=== PATIENT | male | born 1970 | race Caucasian/White ===

== ENCOUNTER 2025-07-13 19:29 | Emergency (ER) | payer OTHER, SELFPAY ==
[2025-07-13 19:40] VITALS: BP 146/86
[2025-07-13 20:03] LABS: Hematocrit 45.1 % (39.0-52.0); Hemoglobin 15.9 g/dL (13.0-18.0); Mean Corp Hgb Conc. 35.3 g/dL (33.0-37.0); Mean Corpuscular Volume 94.4 fL (80.0-94.0); Nucleated Red Blood Cells % 0 % (-); Platelet Count 306 10^3/uL (130-400); Red Cell Dist. Width 12.4 % (11.5-14.5)
[2025-07-13 20:23] LABS: ALT (SGPT) 42 U/L (0-50); AST (SGOT) 34 U/L (17-59); Albumin 4.6 g/dl (3.5-5.0); Alkaline Phosphatase 63 U/L (38-126); Blood Urea Nitrogen 33 mg/dl (9-20); Calcium 9.5 mg/dl (8.4-10.2); Carbon Dioxide 29 mmol/L (22-30); Chloride 103 mmol/L (98-107); Glucose 119 mg/dl (70-99); Potassium 4.4 mmol/L (3.5-5.1); Sodium 139 mmol/L (135-145); Total Protein 7.2 g/dl (6.3-8.2); eGFR > 60.00
[2025-07-13 22:51] LABS: Troponin I < 0.012 ng/ml
[2025-07-14 00:21] VITALS: BMI 28.8
[2025-07-14 00:23] VITALS: BP 130/86
[2025-07-14 01:00] VITALS: BP 131/73
--- NOTE | 2025-07-14 02:18 | ED.GENMED ---
History of Present Illness
General
Chief Complaint: Chest Pain
Source: patient and family
Time Seen by Provider: 07/14/25 00:17
Nursing documentation reviewed up to this point in time: agreed with
History of Present Illness
History of Present Illness:
Note:
CHIEF COMPLAINT(S)
Rapid heart rate and chest pain.
HISTORY OF PRESENT ILLNESS
The patient is a 55-year-old male presenting with a rapid heart rate and associated chest pain. The symptoms began approximately two hours prior to the visit. The patient reports experiencing a similar episode during the summer, attributing it to
excessive caffeine consumption. He denies the use of any medications, including blood thinners, and has not previously seen a athletic team physician. The patient has an upcoming appointment with Dr. Andujar scheduled for September 01. During todays visit, the
patient was found to be slightly dehydrated after spending significant time outdoors. An initial electrocardiogram was performed on-site, revealing irregular heart rhythms. Concerns regarding potential atrial fibrillation were noted by the attending
physician. The patient is normally in good health with no reported chronic conditions.
PHYSICAL EXAM
General: Alert, no acute distress.
Skin: Warm, dry.
Head: Normocephalic, atraumatic.
Neck: Supple, trachea midline.
Eyes, Ears, Nose, Mouth, and Throat: Oral mucosa moist.
Cardiovascular: Notable irregular heartbeat.
Respiratory: Respirations are non-labored.
Gastrointestinal: Abdomen nondistended.
Back: Normal range of motion, normal alignment.
Musculoskeletal: Normal range of motion, normal strength.
Neurological: Alert and oriented to person, place, time, and situation, no focal neurological deficit observed.
Psychiatric: Cooperative, appropriate mood and affect.
PLAN
1. Monitor heart rate and rhythm closely; reassess electrocardiogram findings.
2. Encourage adequate hydration to address any dehydration.
3. Referral to cardiology expedited for potential evaluation of suspected arrhythmias, possibly due to atrial fibrillation.
4. Review electrolytes and other labs as deemed necessary for further assessment.
5. Advise patient to reduce caffeine consumption due to potential exacerbation of symptoms.
DIFFERENTIAL DIAGNOSIS
The Differential Diagnosis includes, in no particular order and is not limited to:
1. Atrial fibrillation.
2. Supraventricular tachycardia.
3. Anxiety-induced palpitations.
4. Caffeine-induced cardiac arrhythmias.
5. Electrolyte imbalances.
6. Myocardial ischemia.
7. Hyperthyroidism.
8. Dehydration-related palpitations.
9. Ventricular tachycardia.
10. Paroxysmal supraventricular tachycardia.
EKG
My independent EKG interpretation is:
- Time of EKG:
- Rhythm: Sinus rhythm
- Heart Rate: 105 bpm
- Abnormalities Observed: Possibility of atrial fibrillation with rapid ventricular response versus sinus rhythm with PACs
- Comparison with previous EKGs: No old EKG available for comparison
Disposition:
SUMMARY OF ENCOUNTER
The patient, a 55-year-old male, presented with palpitations and dehydration. He was able to drink liquids without issue and was encouraged to maintain hydration. The patients condition improved during the visit, and he is scheduled for a follow-up
appointment with Dr. Andujar in the near future. A referral for chest pain follow-up was also arranged.
DISPOSITION
Discharge.
PLAN
1. Continue to hydrate to address dehydration.
2. Follow up with Dr. Andujar as previously scheduled.
3. Arrange for chest pain follow-up.
MEDICAL DECISION MAKING
1. Number and Complexity of Problems Addressed:
Chronic conditions affecting care: None reported.
Differential Diagnosis list includes:
- Atrial fibrillation
- Supraventricular tachycardia
- Anxiety-induced palpitations
- Caffeine-induced cardiac arrhythmias
- Electrolyte imbalances
- Myocardial ischemia
- Hyperthyroidism
- Dehydration-related palpitations
- Ventricular tachycardia
- Paroxysmal supraventricular tachycardia
2. Data:
Category 1
My independent interpretation of EKG: Sinus rhythm with a heart rate of 105 bpm, with the possibility of atrial fibrillation with rapid ventricular response noted.
3. Risk:
Consideration of Admission/Observation: Escalation of care including admission/observation was considered given the complexity and risk of the patients presenting complaint, exam findings, and/or their underlying comorbidities. However, ultimately I
feel the patient is safe for outpatient management with close follow up. Reasoning: Work-up reassuring, does not reveal any acute life/organ threatening processes, patients symptoms well controlled upon reevaluation, reexamination is reassuring,
vitals are stable, patient agreeable with discharge, reliable for follow-up.
DIAGNOSIS
- Palpitations, unspecified (ICD-10: R00.2)
- Dehydration (ICD-10: E86.0)
Past History
Past History
ED Past Medical History: None
Social History
Living: with family
Employment: Employed
Phy Exam
General Physical Exam
General Presentation: well appearing and no apparent distress
General Skin: warm and dry
General Habitus: normal
General Mental: alert
General Hydration: appears well hydrated
ENT Exam
ENT Exam: EOMI, pharynx normal, neck supple and normocephalic
Eye Exam
Eye Exam: PERRL, cornea clear and conjunctiva normal
Cardiovascular Exam
Cardiovascular Exam: regular rate/rhythm, no edema, no murmur and normal peripheral pulses
Pulmonary Exam
Pulmonary Exam: lungs clear, no respiratory distress, no rales, no crackles, no rhonchi, no stridor, no wheezing and no cough
Gastrointestinal Exam
Gastrointestinal Exam: normal bowel sounds, non tender, soft, no organomegaly, no pulsatile mass and non distended
Neurological Exam
Neurological Exam: alert, oriented x3, no motor deficits and speech normal
Musculoskeletal Exam
Musculoskeletal Exam: full ROM and no edema
Skin Exam
Skin Exam: normal color, warm/dry, no rash and no petechia
Psychiatric Exam
Psychiatric Exam: normal mood/affect
Scores
Heart Score for Chest Pain Patients
STEMI patient?: No
History: Slightly or Non-Suspicious
ECG: Normal
Age: >45 - <65 years
Risk Factors: No Risk Factors
Troponin: </= Normal Limit
Heart Score for Chest Pain Patients: 1
Heart Score Risk: 2.5% MACE over next 6 weeks
Course
Orders/Labs/Results
Orders:
Orders
07/13/25 19:30
Electrocardiogram (*1) Urgent
Reason for Study: Chest Pain
EKG- Treatment ONCE
07/13/25 19:51
Complete Blood Count/With Diff Urgent
Comprehensive Metabolic Panel Urgent
07/13/25 22:18
Troponin I Urgent
07/14/25 01:27
0.9% Sodium Chloride 1000 ml [Nss] 1,000 ml IV BOLUS
Abnormal Lab Results
07/13/25
19:51
WBC 11.9 H 10^3/uL
(4.8-10.8)
MCV 94.4 H fL
(80.0-94.0)
MCH 33.3 H pg
(27.0-31.0)
Abs Immat Gran (auto) 0.1 H 10^3/uL
(0-0.05)
Absolute Lymphs (auto) 4.6 H 10^3/uL
(1.2-3.4)
Absolute Monos (auto) 1.0 H 10^3/uL
(0.1-0.6)
Immature Gran % 0.9 H %
(0-0.5)
BUN 33 H mg/dl
(9-20)
Glucose 119 H mg/dl
(70-99)
07/13/25 19:51
07/13/25 19:51
Vital Signs
Initial and Last Documented VS:
Initial Vital Signs
Temp Pulse Resp BP Pulse Ox
98.5 F 74 16 146/86 98
07/13/25 19:40 07/13/25 19:40 07/13/25 19:40 07/13/25 19:40 07/13/25 19:40
Last Documented Vital Signs
Temp Pulse Resp BP Pulse Ox
98.5 F 62 16 130/86 97
07/13/25 19:40 07/14/25 00:23 07/14/25 00:23 07/14/25 00:23 07/14/25 00:23
*Pulse Oximetry
SaO2: 97
Oxygen Mode of Delivery: Room air
Patient hypoxic: not evaluated
*Critical Care Note
Total Time (30-74mins, 75-104mins- exclusive of procedures): Not Applicable
ED Attending Note
-
Portions of this chart may have been created with voice recognition software.� Occasional wrong word or��sound alike� substitutions may have occurred due to the inherent limitations of voice recognition software.
Discharge Plan
Departure
Patient Disposition: Home (Routine Discharge)
Date of Disposition: 07/14/25
Time of Disposition: 02:21
Patient with high blood pressure during this ER visit?: No
Discharge Problem:
Chest pain, Palpitations
Instructions: Chest Pain CBC Follow Up
Prescriptions:
No Action
amoxicillin 500 MG capsule
500 mg PO TID Qty: 21 0RF
[id number] 10 ML drops,suspension
3 drp LEFT EAR TID Qty: 1 0RF
Rx Instructions:
Instil 3 drops in affected ear 3 times daily x 7 days
Referrals:
Dipak Andujar DO [Active, Cardiology]
Alka Roberts MD [Family Provider]
Activity Restrictions/Additional Instructions:
Thank You for choosing [facility].
It was a pleasure meeting you and taking part in your care. We hope for your continued healing and wellness.
Please read discharge instructions in their entirety. However, they are for general education and may not describe your exact diagnosis at discharge. Information on your ER visit and medical conditions were discussed with you along with appropriate
follow up information...
If indicated, please take your medications as instructed and indicated on discharge paperwork.
Please schedule a follow up appointment as directed. Call to schedule an appointment
Please return to the emergency department with ANY change in, persisting, or worsening of symptoms. If any of your symptoms do not improve, or persist, or become more severe within 6-12 hours, please return to the emergency department for further
care.
Please return to the emergency department if you develop a headache, neck pain/stiffness, fever greater than 100.4F, chest pain, shortness of breath, persistent nausea, vomiting, slurred speech, difficulty walking, numbness/tingling, weakness, signs
of infection or any other symptoms that are worrisome to you.
If you have any questions or concerns please do not hesitate to call the Hospital at or E-mail me directly at [email or web address]
Interventions
Interventions:
*Risk Screen - Suicide Last Done: 07/13/25 19:31
*General Assessment Last Done: 07/13/25 19:40
*Neglect/Abuse Screening Last Done: 07/13/25 19:40
*ED- Fall Risk Assessment Last Done: 07/13/25 19:40
*ED COVID-19 Vaccine History Last Done: 07/13/25 19:40
ED- Cardiac Assessment Last Done: 07/14/25 00:10
Discharge Date and Time
Print Language: SLOVENIAN
[2025-07-14 02:21] VITALS: BP 132/89
== END 2025-07-14 02:30 | disposition home or self-care (01) ==
LOC: EMR 19:29
PROVIDERS: Emergency Medicine; EMERGENCY PHYSICIAN Student in an Organized Health Care Education/Training Program; FAMILY PHYSICIAN Internal Medicine
DX: R07.9 Chest pain, unspecified (principal); R00.2 Palpitations; E86.0 Dehydration
CPT/HCPCS: 99284; 80053; 84484; 85025; 93005

== ENCOUNTER → 2025-08-04 08:53 | Outpatient (REF) | payer OTHER, SELFPAY | LOC: HWRCS 08:53 | PROVIDERS: ATTENDING PHYSICIAN Internal Medicine Cardiovascular Disease | DX: I48.91 Unspecified atrial fibrillation (principal); R00.1 Bradycardia, unspecified; R00.0 Tachycardia, unspecified | CPT/HCPCS: 93306 ==